=== PATIENT | male | born 1945 | race Caucasian/White ===

== ENCOUNTER 2016-09-21 12:43 | Emergency (ER) | payer OTHER, MEDICAID ==
[~2016-09-21] VITALS: Ht 170.2 cm; Wt 79.4 kg
--- NOTE | 2016-09-21 12:43 | NUR ---
PT BIBA TO BED 3.
[2016-09-21 12:47] VITALS: BP 106/59
--- NOTE | 2016-09-21 13:00 | NUR ---
PT C/O LEFT UPPER CHEST PAIN,IN CUSTODY BY [place] [employer]ER J[employer]NY. NO DISCOLORATION NOTED, NO FLAIL PALPATED, SYMMETRICAL CHEST EXPANSION--FULL CLEAR SPEECH. DENIES N/V/D; SKIN IS PINK/WARM/DRY; AAOX4 WITH EVEN AND STEADY GAIT; LUNGS CLEAR BL; HR EVEN AND REGULAR; PT DENIES ANY FEVER, SOB, OR COUGH AT THIS TIME; PATIENT STATES PAIN OF 6/10 AT THIS TIME; VSS; PATIENT POSITIONED FOR COMFORT; HOB ELEVATED; BEDRAILS UP X2; BED DOWN. ER MD MADE AWARE OF PT STATUS.
[2016-09-21 13:09] LABS: BASOPHILS # (AUTO) 0.1 K/uL (0.00-0.22); EOSINOPHILS # (AUTO) 0.1 K/uL (0-0.4); EOSINOPHILS % (AUTO) 1.7 % (0.0-4.0); HEMATOCRIT 34.4 % (36-52); HEMOGLOBIN 11.3 g/dL (12.0-18.0); LYMPHOCYTES # (AUTO) 1.3 K/uL (2.0-11.5); MEAN CORPUSCULAR HEMOGLOBIN 31 pg (27-31); MEAN CORPUSCULAR HGB CONC 33 g/dL (33-37); MEAN CORPUSCULAR VOLUME 93 fL (80-94); MONOCYTES % (AUTO) 12.2 % (1.7-9.3); NEUTROPHILS # (AUTO) 5.4 K/uL (1.8-7.7); NEUTROPHILS % (AUTO) 69.1 % (42.2-75.2); PLATELET COUNT (AUTO) 181 K/uL (140-450); RED CELL DISTRIBUTION WIDTH 13.1 % (11.6-13.7); WHITE BLOOD COUNT (AUTO) 7.9 K/uL (4.8-10.8)
[2016-09-21 13:24] LABS: ANION GAP 12.1 (8-16); CALCIUM 8.4 mg/dL (8.5-10.1); CARBON DIOXIDE 23.5 mmol/L (21-32); CREATININE 0.9 mg/dL (0.7-1.3); POTASSIUM 3.6 mmol/L (3.5-5.1); TOTAL BILIRUBIN 0.6 mg/dL (0.0-1.0); TOTAL PROTEIN, SERUM 6.4 g/dL (6.4-8.2)
[2016-09-21] MEDS: NACL 0.9% 1,000 ML IV SCH (13:35)
[2016-09-21] MEDS: ASPIRIN 325 MG TAB PO ONE (13:35)
[2016-09-21 13:40] LABS: PARTIAL THROMBOPLASTIN TIME 27.9 secs (22-35.6); PROTHROMBIN TIME 10.2 secs (10.8-13.4)
[2016-09-21 13:54] LABS: AMYLASE 60 U/L (25-115); LIPASE 226 U/L (73-393)
[2016-09-21 14:34] VITALS: BP 110/60
--- NOTE | 2016-09-21 14:34 | NUR ---
Patient discharged with v/s stable. Written and verbal after care instructions given and explained. Patient verbalized understanding. Police with in custody. All questions addressed prior to discharge. Advised to follow up with PMD.
== END 2016-09-21 14:34 ==
LOC: MED 12:43
DX: R07.89 Other chest pain (principal); I25.10 Atherosclerotic heart disease of native coronary artery without angina pectoris; I10 Essential (primary) hypertension; F31.9 Bipolar disorder, unspecified
CPT/HCPCS: 36415; 71010; 80053; 82150; 82553; 83690; 83880; 84484; 85025; 85610; 85730; 93005; 96360; 99285; Q0092